=== PATIENT | female | born 1965 | race Two or more races ===

== ENCOUNTER 2023-01-24 20:46 | Emergency (ER) | payer SELFPAY ==
[~2023-01-24] VITALS: Ht 162.6 cm; Wt 69.1 kg
[2023-01-24 21:57] LABS: Hematocrit 37.8 % (36.0-46.0); Hemoglobin 13.5 g/dL (12.2-16.2); Mean Corpuscular Hemoglobin 30.5 pg (28.0-32.0); Mean Corpuscular Hgb Conc. 35.7 g/dL (32.0-36.0); Mean Corpuscular Volume 85.6 fL (80.0-100.0); Red Blood Cells 4.42 10^6/uL (4.0-5.20); Red Cell Distribution Width 13.3 % (11.8-14.3); White Blood Cell 9.1 10^3/uL (4.4-10.8)
[2023-01-24 21:59] LABS: Alkaline Phosphatase 225 U/L (46-116); Calcium 9.7 mg/dL (8.5-10.1); Carbon Dioxide 25 mmol/L (20-30); Chloride 98 mmol/L (98-107)
[2023-01-24 22:00] LABS: Albumin 4.4 g/dL (3.2-4.8); Anion Gap 8 (5-15); BUN/Creatinine Ratio 12.9 (10.0-20.0); Basophils % (manual) 0 (0.0-2.0); Bilirubin, Total < 0.2 mg/dL (0.2-1.0); Blast Cells 0; Blood Urea Nitrogen 15 mg/dL (9-23); Glucose 183 mg/dL (74-106); Metamyelocytes % 0; Myelocytes % 0; Potassium 4.1 mmol/L (3.5-5.1); Promyelocytes % 0; Reactive Lymphocytes 0; Sodium 131 mmol/L (136-145); Total Protein 7.8 g/dL (5.7-8.2)
[2023-01-24 22:07] LABS: Alanine Aminotransferase 48 U/L (7-40); Aspartate Aminotransferase 41 U/L (13-40)
[2023-01-24 22:19] LABS: Band Neutrophils % (manual) 2; Eosinophils % (manual) 4 (0-7); Lymphocytes % (manual) 33 (10.0-50.0); Monocytes % (manual) 7 (0-12); Platelet Estimate Adequate; RBC Morphology Normal
[2023-01-24] MEDS ORDERED: DexAMETHasone SOD PHOS 10MG/1ML VIAL INJ IM ONE (23:15)
[2023-01-24] MEDS ORDERED: ACYCLOVIR 400 MG TAB PO ONE (23:15)
[2023-01-24 23:16] VITALS: BP 180/97; PULSE 90; RESP 18; TEMP 97.6; O2SAT 95
[2023-01-24] MEDS ORDERED: DEX4T PO (23:22)
[2023-01-24] MEDS ORDERED: VALA500T33 PO (23:22)
== END 2023-01-25 00:04 | disposition home or self-care (01) ==
LOC: ER 20:46
DX: G51.0 Bell's palsy (principal); E87.1 Hypo-osmolality and hyponatremia; R74.01 Elevation of levels of liver transaminase levels; R74.8 Abnormal levels of other serum enzymes; E11.9 Type 2 diabetes mellitus without complications; I10 Essential (primary) hypertension; E78.5 Hyperlipidemia, unspecified; Z86.73 Personal history of transient ischemic attack (TIA), and cerebral infarction without residual deficits
CPT/HCPCS: 36415; 70450; 80053; 84484; 85007; 85027; 93005; 96372; 99285; J1100

== ENCOUNTER 2023-02-13 20:59 | Emergency (ER) | payer SELFPAY ==
[~2023-02-13] VITALS: Ht 165.1 cm; Wt 66.8 kg
[~2023-02-13 20:59] MED LIST: DEX4T PO; VALA500T33 PO
[2023-02-13 23:13] LABS: Alanine Aminotransferase 154 U/L (7-40); Albumin 3.9 g/dL (3.2-4.8); Alkaline Phosphatase 345 U/L (46-116); Anion Gap 7 (5-15); BUN/Creatinine Ratio 10.7 (10.0-20.0); Blood Urea Nitrogen 18 mg/dL (9-23); Calcium 9.1 mg/dL (8.5-10.1); Carbon Dioxide 23 mmol/L (20-30); Chloride 100 mmol/L (98-107); Glucose 370 mg/dL (74-106); Potassium 4.7 mmol/L (3.5-5.1); Sodium 130 mmol/L (136-145)
[2023-02-13 23:14] LABS: Bilirubin, Total < 0.2 mg/dL (0.2-1.0)
[2023-02-13 23:53] LABS: Aspartate Aminotransferase 154 U/L (13-40)
[2023-02-14 00:21] LABS: Hemoglobin 10.7 g/dL (12.2-16.2)
[2023-02-14 00:24] LABS: Hematocrit 31.5 % (36.0-46.0); Mean Corpuscular Hemoglobin 29.9 pg (28.0-32.0); Mean Corpuscular Hgb Conc. 34.1 g/dL (32.0-36.0); Mean Corpuscular Volume 87.5 fL (80.0-100.0); Red Cell Distribution Width 13.7 % (11.8-14.3); White Blood Cell 14.1 10^3/uL (4.4-10.8)
[2023-02-14 00:34] LABS: Basophils % (manual) 0 (0.0-2.0); Blast Cells 0; Metamyelocytes % 0; Myelocytes % 0; Promyelocytes % 0; Reactive Lymphocytes 0
[2023-02-14 00:54] LABS: Band Neutrophils % (manual) 6; Eosinophils % (manual) 1 (0-7); Lymphocytes % (manual) 20 (10.0-50.0); Monocytes % (manual) 4 (0-12)
[2023-02-14 00:55] LABS: Platelet Estimate Adequate
[2023-02-14] MEDS ORDERED: cefTRIAXone SOD 1,000 MG VL IM ONE (01:15)
[2023-02-14] MEDS ORDERED: BACDST PO (01:18)
[2023-02-14] MEDS ORDERED: CEPH500C PO (01:18)
[2023-02-14 01:42] VITALS: BP 158/91; PULSE 89; RESP 20; TEMP 98; O2SAT 97
== END 2023-02-14 01:54 | disposition home or self-care (01) ==
LOC: ER 20:59
DX: L03.115 Cellulitis of right lower limb (principal); L02.611 Cutaneous abscess of right foot; E87.1 Hypo-osmolality and hyponatremia; I10 Essential (primary) hypertension; E11.9 Type 2 diabetes mellitus without complications; E78.5 Hyperlipidemia, unspecified; Z86.73 Personal history of transient ischemic attack (TIA), and cerebral infarction without residual deficits; Z79.899 Other long term (current) drug therapy
CPT/HCPCS: 36415; 73700; 80053; 83605; 85007; 85027; 96372; 99285; J0696